=== PATIENT | female | born 1975 | race Caucasian/White ===

== ENCOUNTER 2024-10-05 11:23 | Emergency (ER) | payer MEDICAID, OTHER ==
[~2024-10-05] VITALS: Ht 162.6 cm; Wt 74.0 kg
[2024-10-05 11:37] VITALS: BP 162/100; PULSE 100; RESP 100; O2SAT 95
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
[2024-10-05] MEDS ORDERED: cloNIDine HCL 0.1 MG TAB PO ONE (13:30)
== END 2024-10-05 11:59 | disposition left against medical advice (07) ==
LOC: ER 11:23 → EDBD 11:23 → ER 11:59
DX: I16.0 Hypertensive urgency (principal)